=== PATIENT | male | born 1965 | race Two or more races ===

== ENCOUNTER → 2022-11-14 | Outpatient (CLI) | payer OTHER | END | disposition home or self-care (01) | LOC: NUCLEAR 07:00 | PROVIDERS: ATTEND Specialist | DX: C43.59 Malignant melanoma of other part of trunk (principal) ==

== ENCOUNTER 2022-11-27 08:20 | Outpatient (CLI) | payer OTHER | END 2022-11-27 08:25 | disposition home or self-care (01) | LOC: NUCLEAR 08:20 | PROVIDERS: ATTEND Specialist | DX: I87.2 Venous insufficiency (chronic) (peripheral) (principal) ==

== ENCOUNTER 2022-11-28 07:57 | Outpatient (CLI) | payer OTHER | END 2022-11-28 08:05 | disposition home or self-care (01) | LOC: NUCLEAR 07:57 | PROVIDERS: ATTEND Specialist | DX: I73.9 Peripheral vascular disease, unspecified (principal) ==